=== PATIENT | female | born 1970 | race Caucasian/White ===

== ENCOUNTER 2017-12-04 07:38 | Day surgery (SDC) | payer OTHER ==
[2017-12-04 08:21] VITALS: BMI 24.7
[2017-12-04] MEDS ORDERED: ceFAZolin SODIUM 1 GM VIAL ONE (08:32)
[2017-12-04] MEDS ORDERED: MIDAZOLAM HCL 2 MG/2 ML SINGLE DOSE VIAL ONE (08:32)
[2017-12-04] MEDS ORDERED: ONDANSETRON 4 MG/2 ML VIAL ONE (08:32)
[2017-12-04] MEDS ORDERED: PROPOFOL 20 ML ONE (08:32)
[2017-12-04] MEDS ORDERED: DEXAMETHASONE SOD PHOSPHATE 4 MG/1 ML VIAL ONE (08:32)
[2017-12-04] MEDS ORDERED: LIDOCAINE 1%/EPI 1:100000 (20 ML MULTI DOSE VIAL) ONE (09:33)
[2017-12-04] MEDS ORDERED: BUPIVACAINE HCL/PF 0.5% (5MG/ML) 10 ML VIAL ONE (09:33)
[2017-12-04] MEDS ORDERED: POVIDONE-IODINE 5% OPHTHALMIC PREP 30 ML SOLUTION ONE (09:33)
[2017-12-04] MEDS ORDERED: BACITRACIN 3.5 GM OPTHALMIC OINT TUBE ONE (09:33)
[2017-12-04] MEDS ORDERED: TETRACAINE 0.5% OPHTH SOLN 2 ML BOTTLE ONE (09:33)
[2017-12-04] MEDS ORDERED: ONDANSETRON 4 MG/2 ML VIAL IVPUSH PRN (10:33)
[2017-12-04] MEDS ORDERED: oxyCODONE HCL 5 MG TABLET PO PRN (10:33)
[2017-12-04] MEDS ORDERED: LACTATED RINGERS SOLUTION 1,000 ML IV SCH (10:45)
--- NOTE | 2017-12-04 10:54 | OP ---
DATE OF OPERATION: 12/04/2017 PREOPERATIVE DIAGNOSIS: Tumor, central left upper lid margin. POSTOPERATIVE DIAGNOSIS: Tumor, central left upper lid margin. PROCEDURE: 1. Examination under anesthesia. 2. Excision of lesion, left upper lid margin inclusive of full-thickness margin, with cauterization at the base. SURGEON: Harry Lopez MD ANESTHESIA: Local with sedation. COMPLICATONS: None. ESTIMATED BLOOD LOSS: 1 mL. OPERATION REPORT: Patient was brought to the operating room, placed on the operating room table. Vital signs monitored by Anesthesia. Time-out was performed. No anesthetic will be used on this patient due to history of severe allergy. Therefore, this had to be performed in the operative setting. No tetracaine was placed in the eye as a result of this. Patient was given a small amount of intravenous sedation. Following which, 1% Benadryl was then injected in the central left upper lid under the skin for a total of 0.5 to 0.75 mL surrounding the lesion. Massage was applied for dispersion of the anesthetic. Patient was prepped and draped in the usual sterile fashion using Betadine. Then, the patient was allowed to wake up from the anesthetic and tested with a 30-gauge needle, and while she felt some dull touching of the skin, she did not feel any pain. At this point, the lid was grasped with forceps. Again, she did not feel any discomfort, and the lid margin lesion was excised at its base with a No. 11 blade flush to the margin. The base bled somewhat and therefore was cauterized, and she tolerated the procedure well. The lesion was submitted for pathologic study. Bacitracin was placed on the left upper lid lesion excision site, and the patient was taken to the recovery room in stable condition. There were no complications, and the patient tolerated the procedure well. HARRY LOPEZ M.D. [id number]
[2017-12-04 14:09] VITALS: BP 132/76; PULSE 63; TEMP 98.1
== END 2017-12-04 14:00 | disposition home or self-care (01) ==
LOC: FASU 07:38
PROVIDERS: ATTEND Ophthalmology
PROC: 08BP0ZX Excision of Left Upper Eyelid, Open Approach, Diagnostic (ICD-10-PCS; principal; 2017-12-04 10:11)
DX: D22.12 Melanocytic nevi of left eyelid, including canthus (principal)
CPT/HCPCS: 84703; 94760